=== PATIENT | male | born 1995 | race Caucasian/White ===

== ENCOUNTER 2017-08-01 18:43 | Emergency (ER) | payer SELFPAY ==
[2017-08-01] MEDS ORDERED: Ketorolac Tromethamine 30 MG/ML VIAL ONE (19:02)
[2017-08-01 19:03] LABS: Bilirubin Negative (Negative); Blood, Urine Small (Negative); Glucose, Urine (Dipstick) Negative (Negative); Ketone, Urine Negative (Negative); Nitrite Negative (Negative); Protein, Urine (Dipstick) Negative (Neg-Trace); Urobilinogen 0.2 mg/dL (0.2-1.0)
[2017-08-01 19:06] LABS: RBC/HPF 0-3 HPF (0-3); Squamous Epithelial 0-3 HPF (0-3); WBC/HPF 0-3 HPF (0-3)
[2017-08-01 19:16] LABS: #Basophils 0.1 thou/uL (0.0-0.2); #Lymphocytes 1.7 thou/uL (1.20-3.40); #Monocytes 0.4 thou/uL (0.11-0.59); #Neutrophils 9.1 thou/uL (1.40-6.50); %Basophils 0.7 % (0.0-1.0); %Eosinophils 0.2 % (0.0-10.0); %Lymphocytes 15.2 % (21.0-51.0); %Monocytes 3.7 % (0.0-10.0); Hematocrit 46.6 % (42.0-52.0); Mean Platelet Volume 8.8 fL (7.4-10.4); Red Blood Cell (RBC) Count 5.45 mill/uL (4.70-6.10); White Blood Cell (WBC) Count 11.4 thou/uL (4.8-10.8)
[2017-08-01] MEDS ORDERED: Ondansetron HCl/PF 4 MG/2 ML Vial ONE (19:16)
[2017-08-01 19:31] LABS: ALT (SGPT) 57 U/L (8-55); AST (SGOT) 25 U/L (5-34); Alkaline Phosphatase 61 U/L (40-150); Anion Gap 18 mmol/L (10-20); BUN (Urea Nitrogen) 7 mg/dL (8.9-20.6); Bilirubin, Total 1.2 mg/dL (0.2-1.2); Calc. Creatinine Clearance 0 mL/min (70-130); Calcium 10.2 mg/dL (7.8-10.44); Carbon Dioxide 24 mmol/L (22-29); Chloride 103 mmol/L (98-107); Estimated GFR-MDRD Greater than 90; Globulin 2.8 g/dL (2.4-3.5); Lipase 17 U/L (8-78); Protein, Total 8.1 g/dL (6.0-8.3)
--- NOTE | 2017-08-01 19:48 | CT ---
ABDOMEN AND PELVIC CT SCAN WITHOUT IV CONTRAST: 08/01/17 HISTORY: 21-year-old male with right flank pain. The lung bases are clear. the visualized liver, gallbladder, pancreas, spleen, and adrenal glands are unremarkable as evaluated without IV contrast. There is no o vert renal calculus. There is no evidence for hydronephrosis. There is an approximately 0.3 x 0.4 cm calcification which is in the general region of the distal right ureter and could conceivably represe nt either a nonobstructing right ureteral calculus or a phlebolith in fairly close proximity to the r ight ureter. No CT evidence for acute appendicitis. No abscess, adenopathy or abnormal fluid collecti on or other acute process in the abdomen or pelvis. IMPRESSION: Approximately 0.3 x 0.4 cm diameter calcification in the general region of the distal right ureter wh ich could either represent a nonobstructing right ureteral calculus or a phlebolith adjacent to the r egion of the right ureter. No renal calculi. No evidence for other significant acute process. Followu p is suggested. A nonemergent followup CT urogram might give additional information in this regard of the patient has persistent unrelenting symptoms. POS: [facility]
== END 2017-08-01 20:31 | disposition home or self-care (01) ==
LOC: SCSER 18:43
DX: N20.1 Calculus of ureter (principal)
CPT/HCPCS: 74176; 80053; 81003; 81015; 83690; 85025; 96361; 96374; 96375; J1885; J2405